=== PATIENT | male | born 1985 | race Caucasian/White ===

== ENCOUNTER 2020-02-25 12:38 | Emergency (ER) | payer BC, SELFPAY ==
[2020-02-25 12:41] VITALS: BP 165/103; PULSE 78; RESP 18; TEMP 36.2; O2SAT 99; BMI 40.0
--- NOTE | 2020-02-25 12:52 | EKG12_ITS ---
Test Reason : CP Blood Pressure : / mmHG Vent. Rate : 063 BPM Atrial Rate : 063 BPM P-R Int : 148 ms QRS Dur : 092 ms QT Int : 398 ms P-R-T Axes : 026 -11 -05 degrees QTc Int : 407 ms Normal sinus rhythm with sinus arrhythmia Moderate voltage criteria for LVH, may be normal variant Borderline ECG Confirmed by GOGO COLLINS, HEATHER ([id number]), assistant editor SISSY KELLER ([id number]) on 02/27/2020 8:15:07 AM Referred By: WIL Confirmed By:HEATHER BOWENS MD
[2020-02-25] MEDS: 0.9% Normal Saline 1,000 ML 1000 ML IV (13:17)
--- NOTE | 2020-02-25 13:20 | RAD_ITS ---
STUDY: X-RAY CHEST REASON FOR EXAM: Male, 35 years old. CHEST PAIN AND TIGHTNESS TECHNIQUE: PA and lateral views of the chest. COMPARISON: None. FINDINGS: EKG electrodes are seen. The lungs are clear and expanded. There is no demonstrated pleural abnormality. Normal size heart. Normal mediastinum and paulette. Normal visualized pulmonary arteries. Normal visualized aortic arch and descending thoracic aorta. Normal visualized thoracic spine. Normal visualized ribs, clavicles, and shoulders. There is no demonstrated abnormality of the visualized soft tissue structures of the upper abdomen. RAD/Chest PA and Lateral IMPRESSION: Normal x-ray examination of the chest. Electronically Signed: Dejuan Lubin, at 13:59 EST , Service support ,
[2020-02-25 13:23] LABS: Absolute Neutrophil Count 6.2 X10^3/uL (2.0-7.7); Basophil# 0.03 X10^3/uL; Basophil% 0.4 % (0-1); Eosinophil# 0.02 X10^3/uL; Eosinophils% 0.3 % (0-5); Hematocrit 48.4 % (40-54); Hemoglobin 16.2 g/dL (13.0-16.5); Lymphocyte % 17.6 % (19-41); Mean Corp Hgb Conc 33.5 g/dL (32-36); Mean Corpuscular Hgb 28.8 pg (27.0-32.0); Mean Corpuscular Volume 86.1 fL (80-94); Mean Platelet Vol. 9.7 fl (6.2-12.0); Monocyte# 0.31 X10^3/uL; Monocyte% 3.9 % (0-10); NRBC Flagged by Analyzer 0 % (0-5); Neutrophil # 6.16 X10^3/uL (2.7-7.7); Neutrophil % 77.5 % (47-70); Platelet Count 245 K/mm3 (150-450); RBC Distribution Width CV 13.2 % (11.6-14.6); RBC Distribution Width SD 40.9 fl (35.1-43.9); Red Blood Count 5.62 M/mm3 (4.6-6.2); White Blood Count 7.9 K/mm3 (4.4-11.0)
--- NOTE | 2020-02-25 13:27 | ED.DCSUM_ITS ---
History of Present Illness Chief Complaint: Chest Pain Informant: Patient Narrative: Patient presenting for evaluation secondary to chest pain. Patient reports that he recovered from coronavirus, he had an infection back in December. Patient states that intermittently he has been dealing with chest pain but specifically over the course of the last couple of days. He states that it is somewhat worse with taking deep breath. Patient endorses that he has some shortness of breath on exertion, as well as lightheadedness. He denies any new fevers. Denies any hemoptysis. He denies any nausea vomiting or diarrhea. Denies any history of DVT or PE. Patient states that the symptoms were somewhat worse while he was walking around [facility] today, so he came to the emergency department for evaluation. Patient does report that he was seen at urgent care, and had blood work performed today. He is unsure of the results of that. Past Medical History - Allergies and Home Meds Allergies/Adverse Reactions: Allergies No Known Allergies Allergy (Verified 02/25/20 12:45) Primary Care Physician: Care Physician,No Primary [Primary Care Provider] - Prior records reviewed: Yes Past Medical History: - - No significant past medical history Lives: With Family Smoking Status: Former smoker Alcohol: None Drugs: None Review of Systems All systems negative except as indicated General: Reports: Malaise, - - Lightheadedness Eyes: Denies: Visual changes - bilaterally, Diplopia ENT: Denies: Rhinorrhea, Sore throat Cardiovascular: Reports: Chest pain Respiratory: Reports: Dyspnea Gastrointestinal: Denies: Abdominal pain, Nausea, Vomiting, Diarrhea, Melena, Hematochezia Genitourinary: Denies: Dysuria, Hematuria, Frequency Musculoskeletal: Denies: Back pain, Extremity Pain Skin: Denies: Rash, Wounds Neurological: Denies: Headache, Weakness, Numbness Physical Exam Vital Signs/Narrative: Vital Signs Temp Pulse Resp BP Pulse Ox 02/25/20 12:41 97.2 F L 78 18 165/103 H 99 Inital Vital Signs reviewed: Yes General: Well nourished, Well developed, Obese, No Acute Distress Head: Normocephalic, Atraumatic Eyes: Perrl, EOMI ENT: Moist mucous membranes, No rhinorrhea Neck: Supple, Nontender Cardiovascular: Regular rate, Regular rhythm, No murmurs Respiratory: No distress, CTA bilaterally, Chest nontender Abdomen: Soft, Nontender, Nondistended, Normal bowel sounds Back: Nontender, Normal Inspection Extremities: Nontender, No edema Skin: Normal color, No rash Neurological: Alert, Oriented x3, Cranial nerves II-XII grossly intact, Normal Strength, Normal Sensation Psychological: Normal affect, Normal Mood Diagnostic/Tx/Re-eval Chest X-Ray - ED: 2 View, Read by ED Physician, Normal Clinical Impression(s) from Imaging Studies Chest X-Ray 02/25/20 13:20 IMPRESSION: Normal x-ray examination of the chest. Electronically Signed: Dejuan Lubin, at 13:59 EST , Service support , Laboratory Data 02/25/20 02/25/20 02/25/20 13:10 13:10 13:10 WBC 7.9 RBC 5.62 Hgb 16.2 Hct 48.4 MCV 86.1 MCH 28.8 MCHC 33.5 RDW Std Deviation 40.9 RDW Coeff of Gwen 13.2 Plt Count 245 MPV 9.7 Immature Gran % (Auto) 0.300 Neut % (Auto) 77.5 H Lymph % (Auto) 17.6 L Routt % (Auto) 3.9 Eos % (Auto) 0.3 Baso % (Auto) 0.4 Absolute Neuts (auto) 6.2 Absolute Lymphs (auto) 1.40 Nucleated RBC % 0 D-Dimer Quant (PE/DVT) 0.40 Sodium 139 Potassium 3.9 Chloride 107 Carbon Dioxide 27.0 Anion Gap 5 BUN 10 Creatinine 0.93 Estim Creat Clear Calc 109.81 Est GFR (MDRD) Af Amer 118 Est GFR (MDRD) Non-Af 97 BUN/Creatinine Ratio 10.7 Glucose 108 H Calcium 9.5 Troponin I < 0.015 - EKG Initial EKG Interpretation: - - Sinus rhythm at [address] segments, LVH changes noted no evidence of acute ischemia. Baseline wander. - Medical Decision Making Patient presented secondary to chest pain. Patient is Covid recovered. Work-up was pursued. CBC chemistry troponin D-dimer unremarkable. Chest x-ray PA and lateral by my personal review as well as radiology is negative. EKG unremarkable. Patient had improvement of his symptoms on repeat evaluation after 1 L normal saline. Patient was discharged with reassurance. ED Disposition - Plan for ED Patient: Disposition: Home or Assisted Living Diagnosis: Chest pain Instructions: ED Chest Pain, Uncertain Cause Referrals: Lashonda Flynn [NON-STAFF] - As Needed
[2020-02-25 13:40] LABS: Anion Gap 5 (5-15); BUN 10 mg/dL (7-18); BUN/Creat Ratio 10.7 RATIO (10-20); Calcium,Total 9.5 mg/dL (8.5-10.1); Chloride 107 mmol/L (98-107); Creatinine, Serum 0.93 mg/dL (0.70-1.30); EST Glomerular Filtration Rate 97 mL/min (>60); Est Glom Filt Rate - Afr Amer 118 mL/min (>60); Estimated Creatinine Clearance 109.81 ml/min; Glucose 108 mg/dL (74-106); Potassium 3.9 mmol/L (3.5-5.1); Sodium Level 139 mmol/L (136-145)
[2020-02-25 14:46] VITALS: BP 144/97; PULSE 77; RESP 15; O2SAT 99
== END 2020-02-25 14:47 | disposition home or self-care (01) ==
PROVIDERS: Emergency Provider Emergency Medicine
DX: R07.9 Chest pain, unspecified (principal); E66.9 Obesity, unspecified; R42 Dizziness and giddiness; Z87.891 Personal history of nicotine dependence; Z86.16 Personal history of COVID-19
CPT/HCPCS: 71046; 80048; 84484; 85025; 85379; 93005; 96360; 99284

== ENCOUNTER → 2022-04-26 | Outpatient (CLI) | payer BC, SELFPAY ==
--- NOTE | 2022-04-26 11:08 | MRI_ITS ---
EXAM: MR HEAD WITHOUT AND WITH INTRAVENOUS CONTRAST CLINICAL INDICATION: ASYMMETRIC HEARING LOSS TECHNIQUE: Multiplanar and multisequence MR images of the brain were obtained without and with intravenous contrast. This report was created using [employer] report [employer] technology. CONTRAST: IV clariscan 25ml COMPARISON: None. FINDINGS: BRAIN AND EXTRA-AXIAL SPACES: Increased FLAIR region in the left basal ganglia may signify early microvascular ischemic changes, a demyelinating process, vasculitis, or sequela related to migraines. No intra- or extra-axial hemorrhage. No intracranial mass or mass effect. Posterior fossa structures are unremarkable. Ventricles are appropriate for age. No hydrocephalus. Basal cisterns are patent. SELLA: Unremarkable. Normal sella turcica, pituitary gland, infundibular stalk, optic chiasm and hypothalamus. AUDITORY SYSTEM: Unremarkable. The internal auditory canals are patent. BONES/JOINTS: Unremarkable. No discrete lytic or blastic abnormalities. SINUSES: Maxillary sinus disease. Left mastoid air cell disease. MASTOID AIR CELLS: See above. ORBITS: Unremarkable as visualized. Both globes, extraocular muscles, optic nerves and retrobulbar fat appear unremarkable. VASCULATURE: Unremarkable as visualized. Normal flow voids in the major intracranial circulation. MRI/Brain W/WO Contrast IMPRESSION: 1. Increased FLAIR region in the left basal ganglia may signify early microvascular ischemic changes, a demyelinating process, vasculitis, or sequela related to migraines. 2. Maxillary sinus disease. Left mastoid air cell disease. Electronically Signed: Branden Emanuel MD at 15:31 EDT ,
== END | disposition home or self-care (01) ==
PROVIDERS: Referring Provider Otolaryngology; Visit Provider Otolaryngology
DX: H90.42 Sensorineural hearing loss, unilateral, left ear, with unrestricted hearing on the contralateral side (principal)
CPT/HCPCS: 70553; A9575